=== PATIENT | male | born 1995 | race Caucasian/White ===

== ENCOUNTER 2016-11-30 11:13 | Emergency (ER) | payer BC ==
[~2016-11-30] VITALS: Ht 180.3 cm; Wt 65.0 kg
[2016-11-30 11:25] VITALS: BP 126/56; PULSE 70; RESP 16; TEMP 99.2; O2SAT 99
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
[2016-11-30] MEDS ORDERED: LIDOCAINE 1%/EPINEPHrine 1:100,000 SOLN 20 ML VIAL ONE (11:51)
[2016-11-30] MEDS ORDERED: CEPHALEXIN MONOHYDRATE 500 MG CAP PO ONE (12:00)
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
[2016-11-30] MEDS ORDERED: LIDOCAINE 1%/EPINEPHrine 1:100,000 SOLN 20 ML VIAL INFIL ONE (13:00)
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
[2016-11-30] MEDS ORDERED: CEPH-460 PO (13:16)
== END 2016-11-30 13:39 | disposition home or self-care (01) ==
LOC: PHED 11:13
DX: S01.511A Laceration without foreign body of lip, initial encounter (principal); S06.0X1A Concussion with loss of consciousness of 30 minutes or less, initial encounter; Y04.0XXA Assault by unarmed brawl or fight, initial encounter; Y92.832 Beach as the place of occurrence of the external cause
CPT/HCPCS: 40650; 70450